=== PATIENT | male | born 1960 | race Hispanic/Latino ===

== ENCOUNTER 2019-08-21 18:51 | Inpatient (IN) | payer SELFPAY ==
[2019-08-21] MEDS ORDERED: Nitroglycerin 2% Ointment 1 INCH/1 GM Packet ONE (19:38)
[2019-08-21] MEDS ORDERED: Labetalol HCl 100 MG/20 ML VIAL ONE (19:38)
[2019-08-21 19:44] LABS: #Eosinphils 0.1 thou/uL (0.0-0.7); #Lymphocytes 2.1 thou/uL (1.20-3.40); #Monocytes 0.9 thou/uL (0.11-0.59); #Neutrophils 8.2 thou/uL (1.40-6.50); %Basophils 0.4 % (0.0-1.0); %Eosinophils 1.2 % (0.0-10.0); %Lymphocytes 18.4 % (21.0-51.0); %Monocytes 7.9 % (0.0-10.0); %Neutrophils 72.1 % (42.0-75.0); Mean Corpuscular HGB CONC 34.2 g/dL (32.0-36.0); Mean Corpuscular Hemoglobin 31.4 pg (27.0-31.0); Mean Corpuscular Volume 91.7 fL (78.0-98.0); Mean Platelet Volume 9.8 fL (7.4-10.4); Platelet Count 163 thou/uL (130-400); RBC Distribution Width 11.3 % (11.5-14.5); Red Blood Cell (RBC) Count 5.09 mill/uL (4.70-6.10); White Blood Cell (WBC) Count 11.4 thou/uL (4.8-10.8)
[2019-08-21 19:50] LABS: PTT 29.9 SEC (22.9-36.1); Prothrombin Time 13.5 SEC (12.0-14.7)
--- NOTE | 2019-08-21 19:54 | RAD ---
Exam: Chest one view HISTORY:Altered mental status. Shortness of breath. Tongue swelling. Comparison: None. FINDINGS: Cardiac silhouette: Normal Aorta: Unremarkable Pulmonary vessels: Normal Costophrenic angles: Clear LUNGS: No masses or consolidation. Pneumothorax: None Osseous abnormalities: None IMPRESSION: No acute cardiopulmonary process.
[2019-08-21 20:05] LABS: ALT (SGPT) 16 U/L (8-55); AST (SGOT) 10 U/L (5-34); Albumin 4.1 g/dL (3.5-5.0); Alkaline Phosphatase 100 U/L (40-110); Anion Gap 11 mmol/L (10-20); BUN (Urea Nitrogen) 21 mg/dL (8.4-25.7); Bilirubin, Total 0.8 mg/dL (0.2-1.2); CK (CPK) 154 U/L (30-200); Calc. Creatinine Clearance 0 mL/min (70-130); Calcium 9.1 mg/dL (7.8-10.44); Carbon Dioxide 28 mmol/L (22-29); Chloride 104 mmol/L (98-107); Estimated GFR-MDRD 48; Globulin 3.4 g/dL (2.4-3.5); Glucose 165 mg/dL (70-105); Potassium 3.1 mmol/L (3.5-5.1); Protein, Total 7.5 g/dL (6.0-8.3); Sodium 140 mmol/L (136-145)
--- NOTE | 2019-08-21 20:19 | CT ---
Exam: Head CT without contrast HISTORY: Altered mental status. Difficulty swallowing, onset yesterday. Speaking difficulty. COMPARISON: none FINDINGS: Hemorrhage: No intraparenchymal hemorrhage or extra-axial hematoma. Brain parenchyma: Cortical camargo-white matter differentiation is preserved. No mass effect or midline shift. Basilar cisterns are patent.Minimal periventricular white matter hypodensities due to chronic small vessel ischemic change. Indeterminate lacunar infarct in the genu of the right internal capsule. Ventricular system: Ventricles and sulci are patent and symmetric. Calvarium: Intact. Sinuses and mastoid air cells: Mucosal disease involving bilateral maxillary sinuses. IMPRESSION: 1. Indeterminate lacunar infarct in the genu of the right internal capsule. Further evaluation with b rain MRI is recommended. Transcribed Date/Time: 08/21/2019 8:34 PM
[2019-08-21 20:27] LABS: CKMB 2.8 ng/mL (0-6.6)
[2019-08-21] MEDS ORDERED: Aspirin Chewable 81 MG TAB ONE (20:53)
[2019-08-21] MEDS ORDERED: hydrALAZINE 20 MG/ML VIAL ONE (20:53)
[2019-08-21 20:57] LABS: Bacteria/HPF None Seen HPF (None Seen); Bilirubin Negative (Negative); Blood, Urine Negative (Negative); Clarity Clear (Clear); Glucose, Urine (Dipstick) Normal (Negative); Leukocyte Negative Leu/uL (Negative); Nitrite Negative (Negative); Protein, Urine (Dipstick) 70 mg/dL (Neg-Trace); RBC/HPF 0-3 HPF (0-3); Squamous Epithelial None Seen HPF (0-3); Urobilinogen Normal mg/dL (Less than 2); WBC/HPF 0-3 HPF (0-3)
[2019-08-21 21:09] LABS: Amphetamine Not Detected (NotDetected); Barbiturates Screen Not Detected (NotDetected); Benzodiazepine Screen Not Detected (NotDetected); Cocaine Metabolite Screen Not Detected (NotDetected); Medtox Control Line Valid? VALID (VALID); Medtox Reader # READER 4; Methadone Not Detected (NotDetected); Methamphetamine Not Detected (NotDetected); Opiate Screen Not Detected (NotDetected); Oxycodone Screen Not Detected (NotDetected); Phencyclidine (PCP) Not Detected (NotDetected); THC/Cannabinoid Screen Not Detected (NotDetected); Tricyclic Screen Not Detected (NotDetected)
--- NOTE | 2019-08-21 22:10 | PDOC.HHP ---
Hospitalist HPI - History of Present Illness Left facial droop History of Present Illness: 58 YO M with a PMH of HTN and med non compliance who presented to the Er with c/ o Right facial droop of 2 days. Pt has a hx of HTN and ran out of his meds 2 months ago. Y'day, he was noted to have slurred speech, abnormal gait and right sided facial droop by his family so he came to the ER for further evaluation. He denied, [place], CP and any focal deficits. Upon, presentation to the ER, pt was noted with malignant HTN with systolic in the 220's not responsive to several doses of IV BP meds. He was also noted with CT brain finding of a lacunar infarct. He will be admitted to the ICU for a cardene gtt and further evaluation. Hospitalist ROS - Review of Systems Constitutional: denies: fever, chills, sweats, weakness, malaise, other Eyes: denies: pain, vision change, conjunctivae inflammation, eyelid inflammation, redness, other ENT: denies: ear pain, ear discharge, nose pain, nose discharge, nose congestion , mouth pain, mouth swelling, throat pain, throat swelling, other Respiratory: denies: cough, dry, shortness of breath, hemoptysis, SOB with excertion, pleuritic pain, sputum, wheezing, other Gastrointestinal: denies: nausea, vomiting, abdominal pain, diarrhea, constipation, melena, hematochezia, other Genitourinary: denies: dysuria, frequency, incontinence, hematuria, retention, other Musculoskeletal: denies: neck pain, shoulder pain, arm pain, back pain, hand pain, leg pain, foot pain, other Neurological: reports: incoordination, change in speech, other (facial droop). denies: weakness, numbness, confusion, seizures Hospitalist History - Past Medical History Cardiac: reports: HTN - Family History Family History: reports: hypertension - Social History Smoking Status: Current every day smoker Alcohol: reports: Occassional Living Situation: With Family Activity level: independent ambulation - Exam General Appearance: NAD, awake alert Eye: PERRL, anicteric sclera ENT: normocephalic atraumatic, no oropharyngeal lesions, moist mucosa Neck: supple, symmetric, no JVD, no thyromegaly, no lymphadenopathy Heart: RRR, no murmur, no rubs, normal peripheral pulses Respiratory: CTAB, no wheezes, no rales, no ronchi, no tachypnea Gastrointestinal: soft, non-tender, normal bowel sounds Extremities: no cyanosis, no clubbing, no edema Skin: normal turgor, no rashes Neurological: no focal deficits, facial droop, speech deficit Musculoskeletal: normal tone, normal strength Psychiatric: normal affect, A&O x 3 Hospitalist Results - Labs Result Diagrams: 08/21/19 19:20 08/21/19 19:20 Lab results: WBC 11.4 thou/uL (4.8-10.8) H 08/21/19 19:20 Hgb 16.0 g/dL (14.0-18.0) 08/21/19 19:20 Hct 46.7 % (42.0-52.0) 08/21/19 19:20 MCV 91.7 fL (78.0-98.0) 08/21/19 19:20 Plt Count 163 thou/uL (130-400) 08/21/19 19:20 Neutrophils % 72.1 % (42.0-75.0) 08/21/19 19:20 Sodium 140 mmol/L (136-145) 08/21/19 19:20 Potassium 3.1 mmol/L (3.5-5.1) L 08/21/19 19:20 Chloride 104 mmol/L (98-107) 08/21/19 19:20 Carbon Dioxide 28 mmol/L (22-29) 08/21/19 19:20 BUN 21 mg/dL (8.4-25.7) 08/21/19 19:20 Creatinine 1.50 mg/dL (0.7-1.3) H 08/21/19 19:20 Glucose 165 mg/dL (70-105) H 08/21/19 19:20 Calcium 9.1 mg/dL (7.8-10.44) 08/21/19 19:20 Total Bilirubin 0.8 mg/dL (0.2-1.2) 08/21/19 19:20 AST 10 U/L (5-34) 08/21/19 19:20 ALT 16 U/L (8-55) 08/21/19 19:20 Alkaline Phosphatase 100 U/L (40-110) 08/21/19 19:20 Creatine Kinase 154 U/L (30-200) 08/21/19 19:20 CK-MB (CK-2) 2.8 ng/mL (0-6.6) 08/21/19 19: Troponin I 0.041 ng/mL (< 0.028) H 08/21/19 19:20 Serum Total Protein 7.5 g/dL (6.0-8.3) 08/21/19 19: Albumin 4.1 g/dL (3.5-5.0) 08/21/19 19: Urine Ketones Negative mg/dL (Negative) 08/21/19 20: Urine Blood Negative (Negative) 08/21/19: Urine Nitrite Negative (Negative) 08/21/19: Ur Leukocyte Esterase Negative Gabriel/uL (Negative) 08/21/19 20: Urine RBC 0-3 HPF (0-3) 08/21/19 20: Urine WBC 0-3 HPF (0-3) 08/21/19 20:41 Ur Squamous Epith Cells None Seen HPF (0-3) 08/21/19 20:41 Urine Bacteria None Seen HPF (None Seen) 08/21/19 20:41 Hospitalist H&P A/P - Problem (1) CVA (cerebral vascular accident) Code(s): I63.9 - CEREBRAL INFARCTION, UNSPECIFIED Status: Acute Qualifiers: Laterality of affected vessel: right Assessment and Plan: Pt is noted with an age indeterminate lacunar infarct in the Right Int capsule. Will get MRA and MRI of Brain and neck, Echo, neuro, PT and OT consults. Will cont med mgt. Pt's CVA is likely >24 housr so will not need permissive HTN. (2) HTN (hypertension), malignant Code(s): I10 - ESSENTIAL (PRIMARY) HYPERTENSION Status: Acute Assessment and Plan: Pt's systolic BP was in the 220's, resistant to IV meds. He will be started on a aleida gtt and weaned off as tolerated. (3) Hypokalemia Code(s): E87.6 - HYPOKALEMIA Status: Acute Assessment and Plan: Will replace, monitor K levels. (4) IRMA (acute kidney injury) Code(s): N17.9 - ACUTE KIDNEY FAILURE, UNSPECIFIED Status: Acute Assessment and Plan: Unsure of baseline, will monitor for now. (5) Tobacco abuse Code(s): Z72.0 - TOBACCO USE Status: Acute Assessment and Plan: Has been counseled. Will give nicotine patch while in hospital. - Plan Plan: PPx: Lovenox CODE: Full. Dispo: Admit to ICU.
[2019-08-21] MEDS ORDERED: niCARdipine 25 MG in Sodium Chloride 0.9% 250 ML 240 ML IVPB SCH (22:15)
[2019-08-21] MEDS ORDERED: Ondansetron PF 4 MG/2 ML Vial IVP PRN (22:19)
[2019-08-21] MEDS ORDERED: Acetaminophen 325 MG TAB PO PRN (22:19)
[2019-08-22 00:24] VITALS: BMI 29.9
[2019-08-22] MEDS: Nicotine 21 MG PATCH TD SCH ×2 (00:29→20:58)
[2019-08-22 03:58] LABS: #Eosinphils 0.1 thou/uL (0.0-0.7); #Lymphocytes 1.5 thou/uL (1.20-3.40); #Monocytes 0.6 thou/uL (0.11-0.59); #Neutrophils 8.8 thou/uL (1.40-6.50); %Basophils 0.3 % (0.0-1.0); %Eosinophils 0.7 % (0.0-10.0); %Lymphocytes 13.7 % (21.0-51.0); %Monocytes 5.7 % (0.0-10.0); %Neutrophils 79.6 % (42.0-75.0); Hemoglobin 14.9 g/dL (14.0-18.0); Mean Corpuscular HGB CONC 33.3 g/dL (32.0-36.0); Mean Corpuscular Hemoglobin 30.4 pg (27.0-31.0); Mean Corpuscular Volume 91.4 fL (78.0-98.0); Mean Platelet Volume 9.8 fL (7.4-10.4); Platelet Count 159 thou/uL (130-400); RBC Distribution Width 11.3 % (11.5-14.5); White Blood Cell (WBC) Count 11.1 thou/uL (4.8-10.8)
[2019-08-22 04:20] LABS: Anion Gap 11 mmol/L (10-20); BUN (Urea Nitrogen) 16 mg/dL (8.4-25.7); Calc. Creatinine Clearance 92 mL/min (70-130); Calcium 8.5 mg/dL (7.8-10.44); Carbon Dioxide 24 mmol/L (22-29); Cardiac Risk 4.2 (Less than 4.5); Chloride 109 mmol/L (98-107); Cholesterol 159 mg/dl (< 200 Desired); Estimated GFR-MDRD 74; Glucose 181 mg/dL (70-105); HDL Cholesterol 38 mg/dL (>60 Neg Risk); LDL Cholesterol, Calculated 104 mg/dL; Potassium 3.1 mmol/L (3.5-5.1); Sodium 141 mmol/L (136-145); Triglycerides 85 mg/dL (Less than 150)
[2019-08-22] MEDS ORDERED: Senokot S 8.6-50 MG TAB PO PRN (07:33)
[2019-08-22] MEDS ORDERED: Loratadine 10 MG TAB PO PRN (07:33)
[2019-08-22] MEDS ORDERED: Diabetic Tussin 200 MG/10 ML UDCUP PO PRN (07:33)
[2019-08-22] MEDS ORDERED: Artificial Tears 18 DROP/0.9 ML EA EYE PRN (07:33)
[2019-08-22] MEDS ORDERED: hydrALAZINE 20 MG/ML VIAL SLOW IVP PRN (07:33)
[2019-08-22] MEDS ORDERED: HYDROcodone/Acetaminophen 5/325 mg Tablet PO PRN (07:33)
[2019-08-22] MEDS ORDERED: Cepastat Lozenges 1 LOZ PO PRN (07:33)
[2019-08-22] MEDS ORDERED: Sodium Chloride 0.65% Nasal 44 ML BOT EA NARE PRN (07:33)
[2019-08-22] MEDS ORDERED: Loperamide HCl 2 MG CAP PO PRN (07:33)
[2019-08-22] MEDS ORDERED: Bisacodyl 10 MG SUPP PR PRN (07:33)
[2019-08-22] MEDS ORDERED: Calcium Carbonate 500 MG ChewTAB PO PRN (07:33)
[2019-08-22] MEDS: NIFEdipine XL 30 MG TAB PO SCH (07:59)
[2019-08-22] MEDS: Famotidine 20 MG TAB PO SCH ×2 (07:59→20:55)
[2019-08-22] MEDS: Aspirin 81 mg Enteric Coated Tablet PO SCH (07:59)
[2019-08-22] MEDS: Metoprolol Tartrate 50 MG TAB PO SCH ×2 (07:59→20:54)
[2019-08-22] MEDS: Enoxaparin Sodium 40 MG/0.4 ML SYRINGE SC SCH (08:00)
--- NOTE | 2019-08-22 09:37 | PDOC.HOSPP ---
- Subjective Encounter Date: 08/22/19 Encounter Time: 09:25 Subjective: Patient seen and examined. No new complaints. No overnight events - Objective Vital Signs & Weight: Vital Signs (12 hours) Temp Pulse Resp BP BP Pulse Ox 08/22/19 08:00 98.8 F 100 08/22/19 07:59 78 187/105 H 08/22/19 03:00 98.2 F 08/22/19 00:06 98.7 F 98 19 159/81 H 100 08/22/19 00:02 98 08/21/19 23:47 98.7 F Weight Weight 179 lb 14.355 oz Most Recent Monitor Data Heart Rate from ECG 68 NIBP 159/97 NIBP BP-Mean 117 Respiration from ECG 19 SpO2 100 I&O: 08/21/19 08/22/19 08/23/19 06:59 06:59 06:59 Intake Total 236 200 Output Total 450 1200 Balance -214 -1000 Result Diagrams: 08/22/19 03:12 08/22/19 03:12 Radiology Reviewed by me: Yes EKG Reviewed by me: Yes Hospitalist ROS - Review of Systems ENT: denies: ear pain, ear discharge, nose pain, nose discharge, nose congestion , mouth pain, mouth swelling, throat pain, throat swelling, other Respiratory: denies: cough, dry, shortness of breath, hemoptysis, SOB with excertion, pleuritic pain, sputum, wheezing, other Cardiovascular: denies: chest pain, palpitations, orthopnea, paroxysmal noc. dyspnea, edema, light headedness, other Gastrointestinal: denies: nausea, vomiting, abdominal pain, diarrhea, constipation, melena, hematochezia, other Genitourinary: denies: dysuria, frequency, incontinence, hematuria, retention, other Musculoskeletal: denies: neck pain, shoulder pain, arm pain, back pain, hand pain, leg pain, foot pain, other - Medication Medications: Active Medications Generic Name Dose Route Start Last Admin Trade Name Freq PRN Reason Stop Dose Admin Aspirin 81 mg 08/22/19 09:00 08/22/19 07:59 Ecotrin PO 81 mg DAILY JAC Administration Enoxaparin Sodium 40 mg 08/22/19 09:00 08/22/19 08:00 Lovenox SC 40 mg 0900 JAC Administration Famotidine 20 mg 08/22/19 09:00 08/22/19 07:59 Pepcid PO 20 mg BID JAC Administration Metoprolol Tartrate 50 mg 08/22/19 09:00 08/22/19 07:59 Lopressor PO 50 mg BID JAC Administration Nicotine 21 mg 08/21/19 22:30 08/22/19 00:29 Nicoderm Patch TD Not Given Q24HR JAC Nifedipine 30 mg 08/22/19 09:00 08/22/19 07:59 Procardia Xl PO 30 mg DAILY JAC Administration - Exam General Appearance: NAD, awake alert Eye: PERRL, anicteric sclera ENT: normocephalic atraumatic, no oropharyngeal lesions Neck: supple, symmetric, no JVD, no thyromegaly Heart: RRR, no murmur, no gallops, no rubs Respiratory: CTAB, no wheezes, no rales Gastrointestinal: soft, non-tender, non-distended, normal bowel sounds Extremities: no cyanosis, no clubbing, no edema Skin: normal turgor, no lesions Musculoskeletal: normal tone, normal strength Psychiatric: normal affect, normal behavior Hosp A/P (1) CVA (cerebral vascular accident) Code(s): I63.9 - CEREBRAL INFARCTION, UNSPECIFIED Status: Acute Qualifiers: Laterality of affected vessel: right (2) IRMA (acute kidney injury) Code(s): N17.9 - ACUTE KIDNEY FAILURE, UNSPECIFIED Status: Resolved (3) HTN (hypertension), malignant Code(s): I10 - ESSENTIAL (PRIMARY) HYPERTENSION Status: Resolved (4) Hypokalemia Code(s): E87.6 - HYPOKALEMIA Status: Acute (5) Tobacco abuse Code(s): Z72.0 - TOBACCO USE Status: Chronic (6) Hypertension Code(s): I10 - ESSENTIAL (PRIMARY) HYPERTENSION Status: Chronic Qualifiers: Hypertension type: essential hypertension Qualified Code(s): I10 - Essential (primary) hypertension - Plan old records reviewed/req, PT/OT, social worker psychiatric, speech therapy 08/22/19 transfer to stroke floor will allow permissive hypertension today MRI, MRA, echo, neuro consult Neuro monitoring and adjust medication Medication reviewed and continue to provide symptomatic care and supportive care
--- NOTE | 2019-08-22 10:18 | MRI ---
EXAM: MRI of the brain without contrast HISTORY: Altered mental status and difficulty swallowing. Stroke. COMPARISON: None TECHNIQUE: Multiplanar multisequence MR images were obtained of the brain without IV contrast. FINDINGS: Scattered foci of high T2/FLAIR signal in the subcortical and periventricular white matter are likely secondary to small vessel ischemic disease. There is a small 8 mm area of restricted diffusion in the right basal ganglia consistent with an acut e infarction. No hydronephrosis. No extra-axial fluid collection or intracranial hemorrhage. The expected flow voids are present. Corpus callosum, pituitary, and craniocervical junction are within normal limits. The calvarium and overlying soft tissues are unremarkable. Mucosal thickening seen in maxillary sinuses. A small amount of fluid is seen in the right mastoid ai r cells. IMPRESSION: Small right basal ganglia infarction.
--- NOTE | 2019-08-22 11:00 | MRI ---
MR angiogram of [place]: 08/22/2019 COMPARISON:None HISTORY:Acute infarction TECHNIQUE: Multiplanar multisequence MR imaging of [place] utilizing noncontrast enhanced [id number] MR angiography. 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 The basilar artery is patent and [place] mild tortuosity. There is multifocal mild/moderate stenosis involving the P1 segment/proximal posterior cerebral artery on the left. Patent bilateral posterior communicating arteries. Mild multifocal distal right MIL[employer] W[employer]IVER irregularity. The A1 segment and the M1 segment appears patent bilaterally. The distal AIDA branches appear intact. There is a focal area of mild/moderate stenosis involving the proximal aspect of the M1 segment on th e left. There is a moderate/severe proximal left M2 stenosis. No central arterial occlusion. No saccular aneurysm. IMPRESSION:Scattered areas of intracranial arterial stenosis as detailed above. No central vascular o cclusion or saccular aneurysm.
--- NOTE | 2019-08-22 11:03 | MRI ---
MR angiogram neck: 08/22/2019 HISTORY: Acute stroke TECHNIQUE: Noncontrast enhanced 3-D [id number] MR angiography of the neck obtained. FINDINGS: Detailed assessment of the arterial structures of the neck is slightly limited secondary to the lack of IV contrast as well as to a prominent degree of motion artifact. Antegrade blood flow is noted within the carotid and vertebral system. No obvious high-grade/severe stenosis is noted on t he basis of NASCET criteria. IMPRESSION: Limited exam secondary to motion and lack of IV contrast demonstrates antegrade blood jackie w within the anterior and posterior circulation with no evidence for arterial occlusion or severe stenosis.
[2019-08-22] MEDS: Atorvastatin Calcium 40 MG TAB PO SCH (20:55)
--- NOTE | 2019-08-23 00:22 | CON ---
DATE OF CONSULTATION: 08/22/2019 CONSULTING PHYSICIAN: Hospitalist Service. IMPRESSION: 1. Lacunar stroke on the right internal capsule region with some transient facial droop. 2. Noncompliance of care of his diabetes and hypertension. PLAN: 1. Continue aspirin, statin, and blood pressure control. 2. Echocardiogram. HISTORY OF PRESENT ILLNESS: Mr. Rea is a 58-year-old man, who came in with facial droop, that apparently has been present for more than two days. His CT showed a right lacunar infarction in the internal capsule region. His lab work was otherwise unremarkable. He had a followup MRI of the brain, which showed the same area of ischemia. His MRA of the carotids and cerebral vessels were unremarkable. He was transiently in the ICU, but at this point, has no complaints of any focal weakness. He was quite hypertensive on arrival with systolic pressures of over 200. PAST MEDICAL HISTORY: Diabetes and hypertension. ALLERGIES: NONE. SOCIAL HISTORY: Unknown. FAMILY HISTORY: Unknown. REVIEW OF SYSTEMS: Unknown. PHYSICAL EXAMINATION: VITAL SIGNS: Blood pressure 153/83, pulse 63, respirations 16, and temperature 98.4. HEENT: Pupils are equal and reactive. Conjunctivae clear. NECK: Supple. EXTREMITIES: No cyanosis. NEUROLOGIC: He is alert and cooperative. His speech seems to be fluent and clear. There is no facial asymmetry. He had equal motor strength. There was no tremor or dysmetria. He could walk independently. SUMMARY: This middle-aged man came in markedly hypertensive and suffered a lacunar infarction. His symptoms have resolved. I agree with your treatment plan. Job ID: [id number]
[2019-08-23] MEDS ORDERED: FLU VACC QS2019-20(6MOS UP)/PF 60 MCG/0.5 ML SYRINGE IM ONE (06:00)
[2019-08-23] MEDS: NIFEdipine XL 30 MG TAB PO SCH (08:44)
[2019-08-23] MEDS: Carvedilol 6.25 MG TAB PO SCH ×2 (08:45→16:24)
[2019-08-23] MEDS: Aspirin 81 mg Enteric Coated Tablet PO SCH (08:45)
[2019-08-23] MEDS: Famotidine 20 MG TAB PO SCH ×2 (08:45→20:35)
[2019-08-23] MEDS: Lisinopril 5 MG TAB PO SCH (08:45)
[2019-08-23] MEDS: Enoxaparin Sodium 40 MG/0.4 ML SYRINGE SC SCH (08:46)
--- NOTE | 2019-08-23 15:21 | PDOC.HOSPP ---
- Subjective Subjective: Seen and examined on stroke unit. Follow-up for right basil ganglion CVA. Patient with facial drooping, did dysphasia, and weakness on admission which have all resolved. Patient talking fluently. No focal neurologic deficits. Blood pressure not controlled, medications adjusted. Time was given for questions, all answered in detail. I stressed the importance of smoking cessation as modifiable risk factor for CVA. - Objective Vital Signs & Weight: Vital Signs (12 hours) Temp Pulse Resp BP BP Pulse Ox 08/23/19 11:05 98.0 F 62 14 179/102 H 97 08/23/19 08:45 67 181/101 H 08/23/19 08:44 67 180/101 H 08/23/19 07:37 98.4 F 54 L 14 180/101 H 97 08/23/19 03:35 98.2 F 52 L 16 170/97 H 98 Weight Weight 179 lb 14.355 oz Most Recent Monitor Data Heart Rate from ECG 68 NIBP 159/97 NIBP BP-Mean 117 Respiration from ECG 19 SpO2 100 I&O: 08/22/19 08/23/19 08/24/19 06:59 06:59 06:59 Intake Total 236 560 Output Total 450 1720 Balance -214 -1160 Result Diagrams: 08/22/19 03:12 08/22/19 03:12 Radiology Reviewed by me: Yes Hospitalist ROS - Review of Systems All other systems reviewed; all pertinent +/- noted in HPI/Subj - Medication Medications: Active Medications Generic Name Dose Route Start Last Admin Trade Name Freq PRN Reason Stop Dose Admin Aspirin 81 mg 08/22/19 09:00 08/23/19 08:45 Ecotrin PO 81 mg DAILY JAC Administration Atorvastatin Calcium 80 mg 08/22/19 21:00 08/22/19 20:55 Lipitor PO 80 mg HS JAC Administration Carvedilol 12.5 mg 08/23/19 08:00 08/23/19 08:45 Coreg PO 12.5 mg BID-WM JAC Administration Enoxaparin Sodium 40 mg 08/22/19 09:00 08/23/19 08:46 Lovenox SC 40 mg 0900 JAC Administration Famotidine 20 mg 08/22/19 09:00 08/23/19 08:45 Pepcid PO 20 mg BID JAC Administration Lisinopril 5 mg 08/23/19 09:00 08/23/19 08:45 Zestril PO 5 mg DAILY JAC Administration Nicotine 21 mg 08/21/19 22:30 08/22/19 20:58 Nicoderm Patch TD Not Given Q24HR JAC Nifedipine 30 mg 08/22/19 09:00 08/23/19 08:44 Procardia Xl PO 30 mg DAILY JAC Administration Sodium Chloride 10 ml 08/21/19 22:19 08/22/19 20:55 Flush - Normal Saline IVF 10 ml PRN PRN Administration Saline Flush - Exam General Appearance: NAD, awake alert Eye: PERRL, anicteric sclera ENT: normocephalic atraumatic, moist mucosa Neck: supple, symmetric, no lymphadenopathy Heart: no murmur, no gallops, no rubs Respiratory: CTAB, no wheezes, no rales, no ronchi, normal chest expansion, no tachypnea Gastrointestinal: soft, non-tender, no guarding, no rigidity Extremities: no edema Skin: no lesions, no rashes Neurological: cranial nerve grossly intact, no focal deficits Musculoskeletal: generalized weakness Psychiatric: normal affect, normal behavior, A&O x 3 Hosp A/P (1) CVA (cerebral vascular accident) Code(s): I63.9 - CEREBRAL INFARCTION, UNSPECIFIED Status: Acute Qualifiers: Laterality of affected vessel: right (2) Hypokalemia Code(s): E87.6 - HYPOKALEMIA Status: Acute (3) Tobacco abuse Code(s): Z72.0 - TOBACCO USE Status: Chronic (4) IRMA (acute kidney injury) Code(s): N17.9 - ACUTE KIDNEY FAILURE, UNSPECIFIED Status: Resolved (5) HTN (hypertension), malignant Code(s): I10 - ESSENTIAL (PRIMARY) HYPERTENSION Status: Resolved - Plan Plan: medical unit telemetry stroke unit CVA regimen: -aspirin -statin -BRENDA inhibitor blood pressure control, medications adjusted patient needs to stop smoking as modifiable risk factor for future CVA neurologic imaging reviewed, MRI abnormal for acute right basal ganglia and CVA G.I. prophylaxis DVT prophylaxis
[2019-08-23] MEDS: Atorvastatin Calcium 40 MG TAB PO SCH (20:35)
[2019-08-23] MEDS: Nicotine 21 MG PATCH TD SCH (21:48)
[2019-08-24] MEDS: Famotidine 20 MG TAB PO SCH (08:58)
[2019-08-24] MEDS: Aspirin 81 mg Enteric Coated Tablet PO SCH (08:58)
[2019-08-24] MEDS: Carvedilol 6.25 MG TAB PO SCH (08:58)
[2019-08-24] MEDS: Lisinopril 5 MG TAB PO SCH (08:58)
[2019-08-24] MEDS: Enoxaparin Sodium 40 MG/0.4 ML SYRINGE SC SCH (08:59)
[2019-08-24] MEDS: NIFEdipine XL 30 MG TAB PO SCH (08:59)
[2019-08-24 12:34] VITALS: BP 172/96; TEMP 97.3
--- NOTE | 2019-08-24 18:23 | DIS ---
DATE OF ADMISSION: 08/21/2019 DATE OF DISCHARGE: 08/24/2019 REASON FOR HOSPITALIZATION: Acute stroke. SIGNIFICANT FINDINGS: The patient was found to have right basal ganglia acute CVA. PROCEDURES PERFORMED AND TREATMENTS RENDERED: The patient was admitted to the Stroke Unit for close management. The patient was seen and evaluated by Neurology - please see full consultation notes for details. The patient had a full and thorough workup by Neurology including all appropriate neurologic imaging - please see full radiographic reports for details. The patient was confirmed to have acute CVA on MRI of the brain, affecting the right basal ganglia. The patient worked with Physical Therapy, Occupational Therapy, and Speech Therapy and has complete resolution of all of the symptoms. The patient was placed on a stroke regimen to reduce the risk of further cerebrovascular accident. The patient's blood pressure medications were titrated daily and controlled prior to discharge. The patient recommended to abstain from tobacco use as this is his number one modifiable risk factor. The patient was recommended safe for discharge by all specialists on 08/24/2019. The patient's medications were sent to the [facility] to ensure compliance with medical regimen. These medications were provided at low/no cost to him with efforts through Case Management. The patient recommended safe for discharge on 08/24/2019. CONDITION ON DISCHARGE: Stable. SPECIFIC INSTRUCTIONS FOR THE PATIENT/FAMILY: 1. The patient is recommended to take all medications as directed. 2. The patient is recommended to follow up with primary care physician in the next 5 to 7 days. 3. The patient is recommended to abstain from tobacco use completely. 4. The patient is recommended to return to acute care hospital immediately if signs or symptoms return, worsen, or any other new symptoms occur. DISCHARGE MEDICATIONS: 1. Nicoderm CQ 21 mg transdermal daily. 2. Nifedipine 30 mg p.o. daily. 3. Lisinopril 5 mg one tablet p.o. daily. 4. Carvedilol 12.5 mg p.o. b.i.d. 5. Atorvastatin 80 mg one tablet p.o. at bedtime. 6. Aspirin 325 mg p.o. daily. Greater than 36 minutes spent coordinating care and discharge process for this patient . Job ID: [id number]
== END 2019-08-24 13:01 | disposition home or self-care (01) | DRG 65 ==
LOC: ERS 18:51 → CCU 22:25 → 2SE 08-22 10:38
PROVIDERS: ADMIT Hospitalist; ATTEND Hospitalist
DX: I63.9 Cerebral infarction, unspecified (principal); N17.9 Acute kidney failure, unspecified; I10 Essential (primary) hypertension; R29.810 Facial weakness; R47.81 Slurred speech; F17.200 Nicotine dependence, unspecified, uncomplicated; E87.6 Hypokalemia; E78.5 Hyperlipidemia, unspecified; J44.9 Chronic obstructive pulmonary disease, unspecified; I50.9 Heart failure, unspecified; I11.0 Hypertensive heart disease with heart failure; R13.10 Dysphagia, unspecified
CPT/HCPCS: 36415; 70450; 70544; 70547; 70551; 71045; 80048; 80053; 80061; 80306; 81003; 81015; 82550; 82553; 84443; 84484; 85025; 85610; 85730; 90471; 90686; 90732; 93005; 93306; 94760; 96365; 96366; 96375; 99292; G0008; G0009; J0360; J1650; J7050

== ENCOUNTER 2023-09-12 16:55 | Emergency (ER) | payer OTHER, SELFPAY ==
[2023-09-12] MEDS ORDERED: Acetaminophen 500 MG TAB ONE (17:17)
[2023-09-12 17:49] LABS: #Monocytes 0.7 thou/uL (0.11-0.59); #Neutrophils 7.8 thou/uL (1.40-6.50); %Basophils 0.2 % (0.0-1.0); %Lymphocytes 8.4 % (21.0-51.0); %Monocytes 7.1 % (0.0-10.0); Hematocrit 46.7 % (42.0-52.0); Mean Corpuscular HGB CONC 36.4 g/dL (32.0-36.0); Mean Corpuscular Hemoglobin 32.9 pg (27.0-31.0); Mean Corpuscular Volume 90.3 fl (78.0-98.0); Mean Platelet Volume 11.8 fL (7.4-10.4); Platelet Count 131 10x3/uL (130-400); RBC Distribution Width 11.7 % (11.5-14.5); Red Blood Cell (RBC) Count 5.17 mill/uL (4.70-6.10); White Blood Cell (WBC) Count 9.2 10x3/uL (4.8-10.8)
[2023-09-12 17:54] LABS: ALT (SGPT) 24 U/L (8-55); AST (SGOT) 21 U/L (5-34); Albumin 3.8 g/dL (3.5-5.0); Alkaline Phosphatase 92 U/L (40-110); Anion Gap 16 mmol/L (10-20); BUN (Urea Nitrogen) 18 mg/dL (8.4-25.7); Bilirubin, Total 0.7 mg/dL (0.2-1.2); Calc. Creatinine Clearance 0 mL/min (70-130); Calcium 8.9 mg/dL (7.8-10.44); Carbon Dioxide 24 mmol/L (22-29); Chloride 101 mmol/L (98-107); Estimated GFR 38; Globulin 3.3 g/dL (2.4-3.5); Glucose 310 mg/dL (70-105); Potassium 2.8 mmol/L (3.5-5.1); Protein, Total 7.1 g/dL (6.0-8.3); Sodium 138 mmol/L (136-145)
[2023-09-12 17:58] LABS: Troponin I 0.071 ng/mL (< 0.028)
[2023-09-12] MEDS ORDERED: Potassium Chloride 20 MEQ TAB ONE (18:20)
[2023-09-12] MEDS ORDERED: Labetalol HCl 100 MG/20 ML VIAL ONE (18:22)
[2023-09-12 18:28] LABS: SARS-CoV-2 NAA Rapid Test Not Detected (NotDetected)
[2023-09-12 21:18] LABS: Troponin I 0.065 ng/mL (< 0.028)
== END 2023-09-12 22:11 | disposition home or self-care (01) ==
LOC: ERS 16:55
DX: J10.1 Influenza due to other identified influenza virus with other respiratory manifestations (principal); E87.6 Hypokalemia; R73.9 Hyperglycemia, unspecified; I10 Essential (primary) hypertension; F17.210 Nicotine dependence, cigarettes, uncomplicated
CPT/HCPCS: 36415; 71045; 80053; 83605; 84484; 85025; 87040; 93005; 96374